=== PATIENT | male | born 1980 | race Caucasian/White ===

== ENCOUNTER 2016-11-07 01:42 | Emergency (ER) | payer OTHER ==
[2016-11-07] MEDS ORDERED: METOCLOPRAMIDE HCL 5 MG/ML 2ML VIAL ONE (02:22)
[2016-11-07] MEDS ORDERED: DIPHENHYDRAMINE HCL 50 MG/1 ML VIAL ONE (02:23)
[2016-11-07] MEDS ORDERED: KETOROLAC TROMETHAMINE 30 MG/ML 1 ML VIAL ONE (02:23)
[2016-11-07 03:33] LABS: ABSOLUTE NEUTROPHIL COUNT 22.6 K/mm3 (1.8-7.7); BASO # 0.1 K/mm3 (0.0-0.2); BASO % 0.4 % (0.2-1.0); EOS % 0.1 % (0.9-2.9); HEMATOCRIT 54.8 % (32.0-52.0); HEMOGLOBIN 18.7 gm/l (14.0-18.0); IMM NEUT # 0.3 K/mm3 (0-0.2); IMM NEUT% 1.2 % (0-1); LYMPH # 1.9 (1.0-4.8); LYMPH % 7.4 % (15-45); MEAN CELL VOLUME 91.9 fl (80.0-94.0); MEAN CORPUSCULAR HEMOGLOBIN 31.4 pg (27.0-31.0); MEAN CORPUSCULAR HGB CONC 34.1 g/dl (33.0-37.0); MEAN PLATELET VOLUME 11.4 fl (7.4-10.4); MONO # 1.4 (0.0-0.8); MONO % 5.2 % (4-12); NEUT % 85.7 % (43-75); PLATELET COUNT 446 K/mm3 (130-400); RED CELL DISTRIBUTION WIDTH 13.6 % (11.5-14.5)
[2016-11-07 03:50] LABS: BAND 6 % (0-10); BASOPHIL 0 % (0-1); EOSINOPHIL 0 % (1-3); LYMPHOCYTE 5 % (15-45); MONOCYTE 5 % (4-12); NEUTROPHILS 84 % (43-75); PLATELET ESTIMATE NORMAL (NORMAL); TOTAL CELLS COUNTED 100
[2016-11-07 04:11] LABS: CALCIUM 11.5 mg/dL (8.6-10.3)
[2016-11-07 04:30] LABS: ALB/GLOB RATIO 1.7 (>1.0); ALBUMIN 5.9 gm/dL (3.5-5.7)
[2016-11-07] MEDS ORDERED: MORPHINE SULFATE 2 MG/ML SYRINGE ONE (05:28)
--- NOTE | 2016-11-07 08:04 | RAD ---
ABDOMEN 2 VIEWS W PA CHEST HISTORY: Diffuse abdominal pain. COMPARISONS: None. FINDINGS: Supine, left lateral decubitus views of the abdomen and a single view chest were obtained demonstrating air within nondilated large and small bowel throughout the abdomen. The abdominal bowel gas pattern is nonspecific. No evidence of free intraperitoneal air is suggested. The osseous structures are intact. The heart size is normal. The lung smith. Be clear. IMPRESSION: 1. A nonspecific abdominal bowel gas pattern. No evidence of free intraperitoneal air is observed. 2. A negative single view chest.
== END 2016-11-07 07:21 | disposition home or self-care (01) ==
LOC: ED 01:42
DX: R11.10 Vomiting, unspecified (principal); R10.9 Unspecified abdominal pain
CPT/HCPCS: 83690; 85025; 80053; 74022; 96375 ×3; 99284; 96374; 96361; 36415; 99283; J1200; J2270; J2765; J1885

== ENCOUNTER 2016-11-08 15:36 | Emergency (ER) | payer OTHER ==
[2016-11-08] MEDS ORDERED: PROMETHAZINE HCL 25 MG/ML VIAL ONE (16:41)
[2016-11-08] MEDS ORDERED: HYDROMORPHONE HCL 1 MG/ML SYRINGE ONE ×2 (16:41→19:06)
[2016-11-08] MEDS ORDERED: SODIUM CHLORIDE 0.9% 2,000 ML ONE (16:41)
[2016-11-08 16:49] LABS: ABSOLUTE NEUTROPHIL COUNT 25.4 K/mm3 (1.8-7.7); BASO # 0.1 K/mm3 (0.0-0.2); BASO % 0.3 % (0.2-1.0); HEMATOCRIT 55.2 % (32.0-52.0); HEMOGLOBIN 19.5 gm/l (14.0-18.0); IMM NEUT # 0.3 K/mm3 (0-0.2); IMM NEUT% 1.1 % (0-1); LYMPH # 1.8 (1.0-4.8); LYMPH % 6.3 % (15-45); MEAN CORPUSCULAR HEMOGLOBIN 31.5 pg (27.0-31.0); MEAN CORPUSCULAR HGB CONC 35.3 g/dl (33.0-37.0); MEAN PLATELET VOLUME 10.9 fl (7.4-10.4); MONO # 1.7 (0.0-0.8); MONO % 5.7 % (4-12); NEUT % 86.6 % (43-75); PLATELET COUNT 433 K/mm3 (130-400); RED CELL DISTRIBUTION WIDTH 13.3 % (11.5-14.5)
[2016-11-08 16:59] LABS: CALCIUM 11.5 mg/dL (8.6-10.3)
[2016-11-08 17:25] LABS: ALB/GLOB RATIO 1.5 (>1.0); ALBUMIN 6.1 gm/dL (3.5-5.7)
[2016-11-08] MEDS ORDERED: CEFTRIAXONE 2 GRAM DUPLEX 50 ML IV ONE (17:52)
[2016-11-08 18:13] LABS: BAND 0 % (0-10); BASOPHIL 0 % (0-1); EOSINOPHIL 0 % (1-3); LYMPHOCYTE 5 % (15-45); MONOCYTE 7 % (4-12); NEUTROPHILS 88 % (43-75); TOTAL CELLS COUNTED 100
[2016-11-08 18:14] LABS: NUCLEATED RED BLOOD CELL 1 /100 WBC; PLATELET ESTIMATE NORMAL (NORMAL)
[2016-11-08 18:53] LABS: VENOUS BLOOD GAS BASE EXCESS -7.4 mmol/L (-2.0-2.0); VENOUS BLOOD GAS HCO3 16.6 mmol/L (22.0-27.0)
--- NOTE | 2016-11-08 19:46 | CT ---
LAYA RIVAS Noncontrast CT abdomen and Pelvis COMPARISON:None CLINICAL HISTORY:Left-sided abdominal pain. Acute renal failure. PROCEDURE: Helical CT using multidetector technique was applied to the abdomen and pelvis. No contrast was given per ordering physician. Sagittal, axial and coronal images are reviewed. Findings CT abdomen (noncontrast): Lung parenchyma at the bases is within normal limits. Pneumomediastinum is present with air surrounding the heart aorta and esophagus. Heart is nonenlarged. Noncontrast images of the liver show no focal abnormality. Gallbladder is not suspiciously distended. Pancreas, spleen, adrenal glands, kidneys, aorta, IVC and patent portal vein are normal. Stomach, small bowel and colon are normal. There is no free air, free fluid or suspicious adenopathy. Degenerative disc disease is present at L5-S1. There is a tiny fat filled umbilical hernia. CT pelvis (noncontrast): Bladder is nearly empty. Prostate and seminal vesicles are normal. Small bowel, colon and appendix are normal. There is no free air, free fluid or suspicious adenopathy. IMPRESSION: 1. Pneumomediastinum 2. No evidence for renal calculus or obstruction 3. Normal appendix 4. No bowel obstruction Note: This critical result was discussed with Dr. Campos 1940 hours
--- NOTE | 2016-11-08 20:17 | CT ---
Name: LAYA RIVAS Exam: CT chest without contrast Comparison: CT abdomen 11/08/2016 Clinical history: Pneumomediastinum on CT abdomen. Recent vomiting. PROCEDURE: Helical CT using multidetector technique was applied to the chest. No contrast was given due to renal failure. Findings: CT chest (noncontrast): Heart is not enlarged. There is no pericardial effusion. Aorta is normal caliber and there is a normal great vessel arrangement. Limited views thyroid glands normal. There is no suspicious axillary mediastinal or hilar adenopathy. Lungs are clear. There is no pleural effusion. Regional skeleton is unremarkable. Extensive pneumomediastinum is identified. Air is noted within the anterior middle and posterior mediastinum outlining all structures. There is air outlining the anterior and medial margins of the upper lobes and the posterior medial margin of the right upper lobe and pneumomediastinum is favored over true bilateral pneumothoraces. Extensive soft tissue air is noted throughout the neck, right slightly greater than left. Right chest wall air is greater than left. The esophagus is not thick-walled or overly dilated. There is no suspicious fluid collection or foreign body. Large airways appear intact. Impression: 1. Extensive diffuse pneumomediastinum with air dissecting diffusely at the neck and in the right greater than left chest wall. Underlying etiology is not appreciated on this exam. Currently, there is no abscess or radiopaque foreign body Note: This critical result was discussed with Dr. Campos at 2013 hours
[2016-11-08] MEDS ORDERED: PIPERACILLIN-TAZO PREMIX BAG 50 ML IV ONE (21:00)
== END 2016-11-08 21:36 | disposition short-term general hospital (02) ==
LOC: ED 15:36
DX: N17.9 Acute kidney failure, unspecified (principal); J98.2 Interstitial emphysema; A41.9 Sepsis, unspecified organism; R10.9 Unspecified abdominal pain; F17.210 Nicotine dependence, cigarettes, uncomplicated; R11.2 Nausea with vomiting, unspecified
CPT/HCPCS: 83605; 83690; 82803; 85025; 87040 ×2; 80053; 74176; 71250; 96375 ×2; 99284; 96361 ×4; 96365; 96367; 36415 ×2; 99285; J1170 ×2; J2550; J2543; J7030; J0696